=== PATIENT | male | born 1945 | race Caucasian/White ===

== ENCOUNTER → 2020-07-20 06:58 | Outpatient (CLI) | payer MEDICARE, BC, SELFPAY ==
[2020-07-21 19:08] LABS: SARS-CoV-2 RNA PCR Negative
== END ==
PROVIDERS: PCP Ophthalmology
DX: Z01.812 Encounter for preprocedural laboratory examination (principal); Z20.822 Contact with and (suspected) exposure to COVID-19
CPT/HCPCS: C9803; U0003; U0005